=== PATIENT | female | born 1945 | race Caucasian/White ===

== ENCOUNTER 2023-10-23 17:30 | Emergency (ER) | payer OTHER ==
[~2023-10-23] VITALS: Ht 152.4 cm; Wt 56.2 kg
[2023-10-23] MEDS ORDERED: COZAAR25 MG PO (18:18)
[2023-10-23] MEDS ORDERED: CHILDREN'S ASPI81 MG PO (18:19)
[2023-10-23] MEDS ORDERED: SINGULAIR10 MG PO (18:19)
[2023-10-23 21:01] LABS: HEMATOCRIT 38.2 % (36.0-45.00); HEMOGLOBIN 13.2 g/dL (12.0-15.00); MEAN CELL VOLUME 90.2 fL (80.00-100.00); MEAN CORPUSCULAR HEMOGLOBIN 31.3 pg (27.00-32.0); MEAN CORPUSCULAR HGB CONC 34.7 g/dl (32.0-36.0); PLATELET COUNT 226 K/uL (150-450); RED BLOOD COUNT 4.23 M/uL (4.00-6.00); RED CELL DISTRIBUTION WIDTH 14.5 % (11.5-14.5)
[2023-10-23 21:13] LABS: CALCIUM 9.5 mg/dL (8.5-10.1); CREATININE SERUM 0.76 mg/dL (0.55-1.02); GFR 73.6; POTASSIUM 4.43 mEq/L (3.5-5.1)
== END 2023-10-23 22:52 | disposition home or self-care (01) ==
LOC: ER 17:30
PROVIDERS: Nurse Practitioner Family
DX: I10 Essential (primary) hypertension (principal); Z85.42 Personal history of malignant neoplasm of other parts of uterus
CPT/HCPCS: 36415; 93005; 96365; 99284; J3490